=== PATIENT | male | born 1950 | race Caucasian/White ===

== ENCOUNTER → 2020-09-14 | Outpatient (CLI) | payer MEDICARE | LOC: RAD 14:41 | DX: M25.562 Pain in left knee (principal); M25.552 Pain in left hip; M79.605 Pain in left leg; M25.572 Pain in left ankle and joints of left foot; M54.2 Cervicalgia; M48.062 Spinal stenosis, lumbar region with neurogenic claudication; I10 Essential (primary) hypertension; E11.40 Type 2 diabetes mellitus with diabetic neuropathy, unspecified; E11.65 Type 2 diabetes mellitus with hyperglycemia; E78.2 Mixed hyperlipidemia; E55.9 Vitamin D deficiency, unspecified; F31.31 Bipolar disorder, current episode depressed, mild; F41.1 Generalized anxiety disorder; N40.0 Benign prostatic hyperplasia without lower urinary tract symptoms; K21.9 Gastro-esophageal reflux disease without esophagitis; L98.9 Disorder of the skin and subcutaneous tissue, unspecified; F17.200 Nicotine dependence, unspecified, uncomplicated; M19.022 Primary osteoarthritis, left elbow; M19.072 Primary osteoarthritis, left ankle and foot; M16.12 Unilateral primary osteoarthritis, left hip; M17.12 Unilateral primary osteoarthritis, left knee | CPT/HCPCS: 73080; 73502; 73552; 73564; 73590; 73610 ==

== ENCOUNTER → 2020-09-30 | Outpatient (CLI) | payer MEDICARE | LOC: KOH-I 11:15 | DX: M25.522 Pain in left elbow (principal); T14.8XXA Other injury of unspecified body region, initial encounter | CPT/HCPCS: 73221 ==

== ENCOUNTER 2021-12-19 17:02 | Emergency (ER) | payer OTHER ==
[2021-12-19 19:09] LABS: HEMOGLOBIN 15.3 gm/dl (14.0-17.5); RED BLOOD COUNT 5.15 M/UL (4.20-5.50); WHITE BLOOD COUNT 28.2 K/UL (4.5-11.0)
[2021-12-19 19:32] LABS: BUN/CREATININE RATIO 14 (0-10)
== END 2021-12-19 19:01 | disposition left against medical advice (07) ==
LOC: ER1 17:02
PROVIDERS: Physician Assistant
DX: M79.671 Pain in right foot (principal); F17.210 Nicotine dependence, cigarettes, uncomplicated; E11.40 Type 2 diabetes mellitus with diabetic neuropathy, unspecified; I10 Essential (primary) hypertension; Z79.4 Long term (current) use of insulin
CPT/HCPCS: 73620; 80053; 83605; 85025; 85652; 86140; 87040; 99283

== ENCOUNTER 2021-12-20 23:04 | Inpatient (IN) | payer MEDICARE ==
[~2021-12-20] VITALS: Ht 185.4 cm; Wt 127.0 kg
[2021-12-21 08:19] LABS: HEMOGLOBIN 14.3 gm/dl (14.0-17.5); RED BLOOD COUNT 4.91 M/UL (4.20-5.50); WHITE BLOOD COUNT 12.1 K/UL (4.5-11.0)
[2021-12-21 08:41] LABS: BUN/CREATININE RATIO 19 (0-10)
[2021-12-21] MEDS ORDERED: ASPIRIN EC81 MG PO (18:20)
[2021-12-21] MEDS ORDERED: AMLODIPINE BESY10 MG PO (18:20)
[2021-12-21] MEDS ORDERED: PROAIR HFA8.5 GM INH (18:20)
[2021-12-21] MEDS ORDERED: ATORVASTATIN CA80 MG PO (18:21)
[2021-12-21] MEDS ORDERED: CELEBREX200 MG PO (18:22)
[2021-12-21] MEDS ORDERED: VITAMIN D325 MCG PO (18:23)
[2021-12-21] MEDS ORDERED: FUROSEMIDE40 MG PO (18:23)
[2021-12-21] MEDS ORDERED: GABAPENTIN800 MG PO (18:24)
[2021-12-21] MEDS ORDERED: HYDROCHLOROTH12.5 MG PO (18:24)
[2021-12-21] MEDS ORDERED: HYDROCODON-ACE1 EAC2 PO (18:25)
[2021-12-21] MEDS ORDERED: NOVOLIN 70100 UNIT/2 SQ ×2 (18:25)
[2021-12-21] MEDS ORDERED: METOPROLOL TART25 MG PO (18:26)
[2021-12-21] MEDS ORDERED: METFORMIN HCL1000 MG PO (18:26)
[2021-12-21] MEDS ORDERED: OMEPRAZOLE40 MG PO (18:26)
[2021-12-21] MEDS ORDERED: TADALAFIL20 M1 PO (18:28)
[2021-12-21] MEDS ORDERED: SERTRALINE HCL100 MG PO (18:28)
[2021-12-22 04:56] LABS: HEMOGLOBIN 13.5 gm/dl (14.0-17.5); RED BLOOD COUNT 4.71 M/UL (4.20-5.50); WHITE BLOOD COUNT 9.9 K/UL (4.5-11.0)
[2021-12-22 05:26] LABS: BUN/CREATININE RATIO 17 (0-10)
[2021-12-23 04:54] LABS: HEMOGLOBIN 13.4 gm/dl (14.0-17.5); RED BLOOD COUNT 4.72 M/UL (4.20-5.50); WHITE BLOOD COUNT 9.8 K/UL (4.5-11.0)
[2021-12-23 05:29] LABS: BUN/CREATININE RATIO 20 (0-10)
== END 2021-12-23 23:26 | disposition short-term general hospital (02) | DRG 637 ==
LOC: ER1 23:04 → MED SURG 4 12-21 11:20 → CDU 12-21 11:20 → MED SURG 4 12-21 21:02
PROVIDERS: Nurse Practitioner; Physician Assistant; ADMIT Internal Medicine
PROC: B24BZZZ Ultrasonography of Heart with Aorta (ICD-10-PCS; principal; 2021-12-23)
DX: E11.621 Type 2 diabetes mellitus with foot ulcer (principal); I50.33 Acute on chronic diastolic (congestive) heart failure; E87.1 Hypo-osmolality and hyponatremia; L03.115 Cellulitis of right lower limb; E11.43 Type 2 diabetes mellitus with diabetic autonomic (poly)neuropathy; E66.01 Morbid (severe) obesity due to excess calories; F41.9 Anxiety disorder, unspecified; I16.0 Hypertensive urgency; I11.0 Hypertensive heart disease with heart failure; F17.200 Nicotine dependence, unspecified, uncomplicated; J44.9 Chronic obstructive pulmonary disease, unspecified; E87.6 Hypokalemia; L97.519 Non-pressure chronic ulcer of other part of right foot with unspecified severity; Z96.611 Presence of right artificial shoulder joint; Z20.822 Contact with and (suspected) exposure to COVID-19; E11.40 Type 2 diabetes mellitus with diabetic neuropathy, unspecified; Z80.8 Family history of malignant neoplasm of other organs or systems; Z79.899 Other long term (current) drug therapy; Z83.3 Family history of diabetes mellitus; Z89.411 Acquired absence of right great toe; Z79.4 Long term (current) use of insulin; Z98.890 Other specified postprocedural states; Z68.36 Body mass index [BMI] 36.0-36.9, adult
CPT/HCPCS: ECHO; 36415; 71045; 73721; 80048; 80053; 80202; 81001; 82962; 83605; 83735; 83880; 85025; 85027; 85652; 86140; 87040; 87070; 87077; 87186; 87205; 93306; 93925; 93971; 96374; 96375; 96376; 99284; J0360; J0692; J1650; J1940; J3370; J7050; J7070; U0002